=== PATIENT | female | born 1980 | race Caucasian/White ===

== ENCOUNTER 2024-07-15 20:34 | Emergency (ER) | payer BC ==
[2024-07-15] MEDS: Dexamethasone 4 MG/ML SDV IM ONE (20:58)
== END 2024-07-15 21:00 | disposition home or self-care (01) ==
LOC: VM.ED 20:34
DX: H69.83 Other specified disorders of Eustachian tube, bilateral (principal)
CPT/HCPCS: 96372; 99283; J1100

== ENCOUNTER 2024-07-29 18:34 | Emergency (ER) | payer BC ==
[2024-07-29 18:45] LABS: APPEARANCE,URINE TURBID (CLEAR); BILIRUBIN,URINE NEGATIVE (NEGATIVE); COLOR,URINE RED (YELLOW); GLUCOSE,URINE NEGATIVE (NEGATIVE); KETONES,URINE NEGATIVE (NEGATIVE); LEUKOCYTE ESTERASE,URINE MODERATE (NEGATIVE); NITRITE,URINE NEGATIVE (NEGATIVE); OCCULT BLOOD,URINE LARGE (NEGATIVE); PH,URINE 5.5 (5.0-8.0); PROTEIN,URINE 100 mg/dL (NEGATIVE); UROBILINOGEN,URINE 0.2 EU/dL (0.2)
[2024-07-29 18:52] LABS: BACTERIA,URINE FEW /HPF (NOT SEEN); MUCUS,URINE OCCASIONAL /LPF (NOT SEEN); RBC,URINE >100 /HPF (NOT SEEN); SQUAMOUS EPITHELIAL CELLS,UR FEW /HPF (NOT SEEN); WBC,URINE >100 /HPF (NOT SEEN)
[2024-07-29] MEDS: Cephalexin 500 MG Cap PO ONE (19:24)
== END 2024-07-29 19:30 | disposition home or self-care (01) ==
LOC: VM.ED 18:34
DX: N39.0 Urinary tract infection, site not specified (principal)
CPT/HCPCS: 81001; 81025; 99284; A9270-GY

== ENCOUNTER 2024-10-15 18:41 | Emergency (ER) | payer BC ==
[2024-10-15] MEDS ORDERED: Sodium Chloride 0.9% 10 ML Syringe FLUSH PRN (19:22)
[2024-10-15 19:36] LABS: BASOPHILS PERCENT AUTO 0.1 % (0.2-1.2); EOSINOPHILS PERCENT AUTO 0.6 % (0.0-4.0); HEMATOCRIT 40.2 % (33.0-47.0); HEMOGLOBIN 14.1 g/dL (12.0-16.0); IMMATURE GRAN ABSOLUTE AUTO 0.04 x10^3/uL (0.00-0.07); LYMPHOCYTES ABSOLUTE AUTO 1.8 x10^3/uL (1.0-4.8); MEAN CORPUSCULAR HEMOGLOBIN 32.3 pg (26.0-32.0); MEAN CORPUSCULAR HGB CONC 35.1 g/dL (32.0-36.0); MEAN CORPUSCULAR VOLUME 92.2 fL (78.0-93.0); MONOCYTES ABSOLUTE AUTO 0.5 x10^3/uL (0.0-0.8); MONOCYTES PERCENT AUTO 7.2 % (2.0-11.0); NEUTROPHILS ABSOLUTE AUTO 4.8 x10^3/uL (1.8-7.7); NEUTROPHILS PERCENT AUTO 66.5 % (50.0-80.0); PLATELET COUNT,PLT 285 x10^3/uL (130-400); RED BLOOD CELL COUNT 4.36 x10^6/uL (4.00-5.50); WHITE BLOOD CELL COUNT,WBC 7.2 x10^3/uL (4.0-10.0)
[2024-10-15 19:37] LABS: APPEARANCE,URINE CLEAR (CLEAR); BILIRUBIN,URINE NEGATIVE (NEGATIVE); COLOR,URINE YELLOW (YELLOW); GLUCOSE,URINE NEGATIVE (NEGATIVE); KETONES,URINE NEGATIVE (NEGATIVE); LEUKOCYTE ESTERASE,URINE NEGATIVE (NEGATIVE); NITRITE,URINE NEGATIVE (NEGATIVE); OCCULT BLOOD,URINE NEGATIVE (NEGATIVE); PH,URINE 5.5 (5.0-8.0); PROTEIN,URINE NEGATIVE (NEGATIVE); UROBILINOGEN,URINE 0.2 EU/dL (0.2)
[2024-10-15] MEDS: HYDROmorphone 0.5 MG/0.5 ML Syringe IVPUSH ONE (19:47)
[2024-10-15 19:48] LABS: PROTHROMBIN TIME 9.9 SEC (8.9-11.5); PTT,PARTIAL THROMBOPLSTIN TIME 28.1 SEC (21.9-33.8)
[2024-10-15 19:50] LABS: A/G RATIO 1.15; ALANINE AMINOTRANSFERASE,ALT 33 U/L (14-59); ALBUMIN 3.8 g/dL (3.4-5.0); ALKALINE PHOSPHATASE 79 U/L (46-116); ASPARTATE AMNIOTRANSFERASE,AST 20 U/L (15-37); BILIRUBIN TOTAL 0.3 mg/dL (0.2-1.0); BLOOD UREA NITROGEN,BUN 15 mg/dL (7-18); CALCIUM 9.9 mg/dL (8.5-10.1); CARBON DIOXIDE,CO2 28 mmol/L (21-32); CHLORIDE,CL 102 mmol/L (98-107); CREATININE 0.7 mg/dL (0.55-1.02); EST CRCL DRUG DOSING (CG) 95.13 mL/min; GLUCOSE RANDOM 93 mg/dL (70-99); POTASSIUM,K 3.9 mmol/L (3.5-5.1); PROTEIN TOTAL,TP 7.1 g/dL (6.4-8.2); SODIUM,NA 139 mmol/L (136-145)
[2024-10-15 19:51] LABS: ANION GAP 12.9 mmol/L (5-15); C-REACTIVE PROTEIN < 0.50 mg/dL (<=0.50); ESTIMATED GFR 110 mL/min (>=60)
[2024-10-15 19:53] LABS: LACTIC ACID 0.7 mmol/L (0.4-2.0)
[2024-10-15] MEDS: Take Home: Acetaminophen/HYDROcodone 325-5 MG, 5 Tab Pack PO ONE (20:09)
== END 2024-10-15 20:17 | disposition home or self-care (01) ==
LOC: VM.ED 18:41 → SUPCPDRO 18:41 → VM.ED 20:17
DX: S30.1XXA Contusion of abdominal wall, initial encounter (principal); G89.18 Other acute postprocedural pain; Z90.49 Acquired absence of other specified parts of digestive tract; Z79.899 Other long term (current) drug therapy; Z88.1 Allergy status to other antibiotic agents; Z88.6 Allergy status to analgesic agent; Z88.8 Allergy status to other drugs, medicaments and biological substances; X58.XXXA Exposure to other specified factors, initial encounter
CPT/HCPCS: 36415; 80053; 81003; 83605; 85025; 85610; 85730; 86140; 96374; 99284; 99284-25; A9270-GY; J1171

== ENCOUNTER 2024-11-01 17:39 | Emergency (ER) | payer BC ==
[2024-11-01 18:30] LABS: BASOPHILS PERCENT AUTO 0.5 % (0.2-1.2); EOSINOPHILS ABSOLUTE AUTO 0.1 x10^3/uL (0.0-0.5); EOSINOPHILS PERCENT AUTO 0.7 % (0.0-4.0); HEMATOCRIT 39.9 % (33.0-47.0); IMMATURE GRAN ABSOLUTE AUTO 0.04 x10^3/uL (0.00-0.07); LYMPHOCYTES ABSOLUTE AUTO 1.9 x10^3/uL (1.0-4.8); LYMPHOCYTES PERCENT AUTO 24.3 % (25.0-50.0); MEAN CORPUSCULAR HEMOGLOBIN 31.8 pg (26.0-32.0); MEAN CORPUSCULAR HGB CONC 35.1 g/dL (32.0-36.0); MEAN CORPUSCULAR VOLUME 90.7 fL (78.0-93.0); MONOCYTES ABSOLUTE AUTO 0.5 x10^3/uL (0.0-0.8); MONOCYTES PERCENT AUTO 6.6 % (2.0-11.0); NEUTROPHILS ABSOLUTE AUTO 5.1 x10^3/uL (1.8-7.7); NEUTROPHILS PERCENT AUTO 67.4 % (50.0-80.0); PLATELET COUNT,PLT 269 x10^3/uL (130-400); WHITE BLOOD CELL COUNT,WBC 7.6 x10^3/uL (4.0-10.0)
[2024-11-01 18:41] LABS: BLOOD UREA NITROGEN,BUN 19 mg/dL (7-18); CALCIUM 9.4 mg/dL (8.5-10.1); CARBON DIOXIDE,CO2 29 mmol/L (21-32); CHLORIDE,CL 102 mmol/L (98-107); CREATININE 0.8 mg/dL (0.55-1.02); GLUCOSE RANDOM 84 mg/dL (70-99); POTASSIUM,K 3.8 mmol/L (3.5-5.1); SODIUM,NA 139 mmol/L (136-145)
[2024-11-01 18:42] LABS: ANION GAP 11.8 mmol/L (5-15); ESTIMATED GFR 94 mL/min (>=60)
[2024-11-01 19:08] LABS: APPEARANCE,URINE CLEAR (CLEAR); BILIRUBIN,URINE NEGATIVE (NEGATIVE); COLOR,URINE LIGHT YELLOW (YELLOW); GLUCOSE,URINE NEGATIVE (NEGATIVE); KETONES,URINE NEGATIVE (NEGATIVE); LEUKOCYTE ESTERASE,URINE NEGATIVE (NEGATIVE); NITRITE,URINE NEGATIVE (NEGATIVE); OCCULT BLOOD,URINE NEGATIVE (NEGATIVE); PROTEIN,URINE NEGATIVE (NEGATIVE); UROBILINOGEN,URINE 0.2 EU/dL (0.2)
[2024-11-01] MEDS: LORazepam 2 MG/ML SDV IVPUSH ONE (19:40)
[2024-11-01] MEDS: Iopamidol 612 MG/ML 100 ML Bottle IVPUSH ONE (20:01)
[2024-11-01] MEDS ORDERED: Ketorolac 30 MG/ML SDV IVPUSH ONE (21:37)
[2024-11-01] MEDS: Morphine 2 MG/ML SYRINGE IVPUSH ONE (21:55)
== END 2024-11-01 22:10 | disposition home or self-care (01) ==
LOC: VM.ED 17:39
DX: R10.84 Generalized abdominal pain (principal); Z79.899 Other long term (current) drug therapy; Z88.6 Allergy status to analgesic agent; Z88.1 Allergy status to other antibiotic agents; Z88.8 Allergy status to other drugs, medicaments and biological substances
CPT/HCPCS: 74177; 80048; 81003; 85025; 96374; 96375; 99284; 99284-25; J2060; J2270; Q9967

== ENCOUNTER 2025-03-14 11:32 | Day surgery (SDC) | payer BC ==
[~2025-03-14 11:32] MED LIST: Lactated Ringers 1,000 ML IV SCH
[2025-03-14] MEDS: Lactated Ringers 1,000 ML IV SCH (12:12)
[2025-03-14] MEDS ORDERED: Ketorolac 30 MG/ML SDV IVPUSH ONE (12:44)
[2025-03-14] MEDS ORDERED: Propofol 200 MG/20 ML SDV ONE ×3 (12:44→13:45)
[2025-03-14] MEDS ORDERED: fentaNYL 100 MCG/2 ML SDV ONE (13:15)
[2025-03-14] MEDS ORDERED: Midazolam 1 MG/ML 2 ML SDV ONE (13:15)
[2025-04-26] MEDS ORDERED: Lactated Ringers 1,000 ML IV SCH (07:00)
== END 2025-03-14 14:39 | disposition home or self-care (01) ==
LOC: VM.SDS 11:32
PROVIDERS: ATTEND Family Medicine
DX: D12.6 Benign neoplasm of colon, unspecified (principal); K63.5 Polyp of colon; K57.30 Diverticulosis of large intestine without perforation or abscess without bleeding; Z86.0100 Personal history of colon polyps, unspecified; Z80.0 Family history of malignant neoplasm of digestive organs; F41.9 Anxiety disorder, unspecified; F32.A Depression, unspecified; Z87.891 Personal history of nicotine dependence
CPT/HCPCS: 00813; 43239; 45380; J2250; J2704; J3010; J7120

== ENCOUNTER 2025-05-26 14:00 | Emergency (ER) | payer BC, OTHER | END 2025-05-26 14:45 | disposition home or self-care (01) | LOC: VM.ED 14:00 | DX: S61.012A Laceration without foreign body of left thumb without damage to nail, initial encounter (principal); Z79.899 Other long term (current) drug therapy; Z88.8 Allergy status to other drugs, medicaments and biological substances; Z88.1 Allergy status to other antibiotic agents; W26.0XXA Contact with knife, initial encounter | CPT/HCPCS: 12001; 99282; 99283; J2003 ==

== ENCOUNTER 2025-06-26 14:59 | Emergency (ER) | payer BC ==
[2025-06-26 15:32] LABS: BASOPHILS ABSOLUTE AUTO 0.0 x10^3/uL (0.0-0.2); BASOPHILS PERCENT AUTO 0.1 % (0.2-1.2); EOSINOPHILS ABSOLUTE AUTO 0.1 x10^3/uL (0.0-0.5); EOSINOPHILS PERCENT AUTO 1.6 % (0.0-4.0); IMMATURE GRAN ABSOLUTE AUTO 0.10 x10^3/uL (0.00-0.07); IMMATURE GRAN PERCENT AUTO 1.40 % (0.00-0.43); LYMPHOCYTES ABSOLUTE AUTO 2.0 x10^3/uL (1.0-4.8); LYMPHOCYTES PERCENT AUTO 27.2 % (25.0-50.0); MONOCYTES ABSOLUTE AUTO 0.5 x10^3/uL (0.0-0.8); MONOCYTES PERCENT AUTO 7.2 % (2.0-11.0); NEUTROPHILS ABSOLUTE AUTO 4.6 x10^3/uL (1.8-7.7); NEUTROPHILS PERCENT AUTO 62.5 % (50.0-80.0); PLATELET COUNT,PLT 241 x10^3/uL (130-400); RED BLOOD CELL COUNT 4.19 x10^6/uL (4.00-5.50); WHITE BLOOD CELL COUNT,WBC 7.4 x10^3/uL (4.0-10.0)
[2025-06-26] MEDS: Ondansetron 4 MG/2 ML SDV IVPUSH ONE (15:42)
[2025-06-26 15:53] LABS: A/G RATIO 1.41; ALANINE AMINOTRANSFERASE,ALT 22 U/L (14-59); ASPARTATE AMNIOTRANSFERASE,AST 14 U/L (15-37); BILIRUBIN TOTAL 0.2 mg/dL (0.2-1.0); BLOOD UREA NITROGEN,BUN 11 mg/dL (7-18); CARBON DIOXIDE,CO2 29 mmol/L (21-32); CHLORIDE,CL 101 mmol/L (98-107); CREATININE 0.8 mg/dL (0.55-1.02); GLUCOSE RANDOM 95 mg/dL (70-99); POTASSIUM,K 4.2 mmol/L (3.5-5.1); PROTEIN TOTAL,TP 6.5 g/dL (6.4-8.2); SODIUM,NA 139 mmol/L (136-145)
[2025-06-26 15:54] LABS: ESTIMATED GFR 93 mL/min (>=60)
[2025-06-26] MEDS: Iopamidol 612 MG/ML 100 ML Bottle IVPUSH ONE (16:45)
[2025-06-26 17:31] LABS: APPEARANCE,URINE CLEAR (CLEAR); GLUCOSE,URINE NEGATIVE (NEGATIVE); OCCULT BLOOD,URINE NEGATIVE (NEGATIVE)
[2025-06-26] MEDS: Acetaminophen/HYDROcodone 325-5 MG Tab PO ONE (18:04)
== END 2025-06-26 18:11 | disposition home or self-care (01) ==
LOC: VM.ED 14:59
DX: R10.84 Generalized abdominal pain (principal); Z88.1 Allergy status to other antibiotic agents; Z88.8 Allergy status to other drugs, medicaments and biological substances; Z79.899 Other long term (current) drug therapy
CPT/HCPCS: 74177; 80053; 81003; 83690; 85025; 96374; 96375; 99284; A9270; J1171; J2405; Q9967

== ENCOUNTER 2025-09-10 00:24 | Emergency (ER) | payer BC ==
[2025-09-10 00:56] LABS: BASOPHILS ABSOLUTE AUTO 0.0 x10^3/uL (0.0-0.2); BASOPHILS PERCENT AUTO 0.3 % (0.2-1.2); EOSINOPHILS ABSOLUTE AUTO 0.1 x10^3/uL (0.0-0.5); EOSINOPHILS PERCENT AUTO 1.5 % (0.0-4.0); IMMATURE GRAN ABSOLUTE AUTO 0.05 x10^3/uL (0.00-0.07); IMMATURE GRAN PERCENT AUTO 0.60 % (0.00-0.43); LYMPHOCYTES ABSOLUTE AUTO 2.3 x10^3/uL (1.0-4.8); LYMPHOCYTES PERCENT AUTO 29.3 % (25.0-50.0); MONOCYTES ABSOLUTE AUTO 0.8 x10^3/uL (0.0-0.8); MONOCYTES PERCENT AUTO 9.9 % (2.0-11.0); NEUTROPHILS ABSOLUTE AUTO 4.6 x10^3/uL (1.8-7.7); NEUTROPHILS PERCENT AUTO 58.4 % (50.0-80.0); PLATELET COUNT,PLT 225 x10^3/uL (130-400); RED BLOOD CELL COUNT 3.95 x10^6/uL (4.00-5.50); WHITE BLOOD CELL COUNT,WBC 7.9 x10^3/uL (4.0-10.0)
[2025-09-10] MEDS: Ondansetron 4 MG Tab.DIS PO ONE (01:09)
[2025-09-10 01:22] LABS: A/G RATIO 1.24; ALANINE AMINOTRANSFERASE,ALT 35 U/L (14-59); ASPARTATE AMNIOTRANSFERASE,AST 14 U/L (15-37); BILIRUBIN TOTAL 0.2 mg/dL (0.2-1.0); BLOOD UREA NITROGEN,BUN 8 mg/dL (7-18); CARBON DIOXIDE,CO2 25 mmol/L (21-32); CHLORIDE,CL 102 mmol/L (98-107); CREATININE 0.7 mg/dL (0.55-1.02); EST CRCL DRUG DOSING (CG) 92.29 mL/min; ESTIMATED GFR 109 mL/min (>=60); GLUCOSE RANDOM 108 mg/dL (70-99); POTASSIUM,K 3.9 mmol/L (3.5-5.1); PROTEIN TOTAL,TP 6.5 g/dL (6.4-8.2); SODIUM,NA 138 mmol/L (136-145)
== END 2025-09-10 01:40 | disposition home or self-care (01) ==
LOC: VM.ED 00:24
DX: R07.89 Other chest pain (principal); Z88.1 Allergy status to other antibiotic agents; Z88.8 Allergy status to other drugs, medicaments and biological substances
CPT/HCPCS: 36415; 71045; 80053; 83690; 84484; 85025; 93005; 93010; 99284; 99285; A9270-GY

== ENCOUNTER 2025-09-12 17:47 | Emergency (ER) | payer BC ==
[2025-09-12] MEDS: Lidocaine 1% with EPINEPHrine 1:100,000 20 ML MDV INFILT STA (18:20)
== END 2025-09-12 18:41 | disposition home or self-care (01) ==
LOC: VM.ED 17:47
DX: S81.811A Laceration without foreign body, right lower leg, initial encounter (principal); Z88.1 Allergy status to other antibiotic agents; Z88.5 Allergy status to narcotic agent; Z88.8 Allergy status to other drugs, medicaments and biological substances; Z79.899 Other long term (current) drug therapy; W26.8XXA Contact with other sharp object(s), not elsewhere classified, initial encounter
CPT/HCPCS: 12001; 99282; J2004

== ENCOUNTER 2025-10-08 19:37 | Emergency (ER) | payer BC | END 2025-10-08 20:46 | disposition home or self-care (01) | LOC: VM.ED 19:37 | DX: G89.18 Other acute postprocedural pain (principal); M79.644 Pain in right finger(s); Z88.1 Allergy status to other antibiotic agents; Z88.8 Allergy status to other drugs, medicaments and biological substances; Z88.6 Allergy status to analgesic agent | CPT/HCPCS: 96372; 99283; J1171 ==

== ENCOUNTER 2025-10-16 21:42 | Emergency (ER) | payer BC ==
[2025-10-16] MEDS: Acetaminophen/HYDROcodone 325-10 MG Tab PO ONE (22:36)
== END 2025-10-16 22:40 | disposition home or self-care (01) ==
LOC: VM.ED 21:42
DX: G89.18 Other acute postprocedural pain (principal); M79.641 Pain in right hand; Z88.1 Allergy status to other antibiotic agents; Z88.0 Allergy status to penicillin; Z88.5 Allergy status to narcotic agent; Z79.899 Other long term (current) drug therapy
CPT/HCPCS: 99283; A9270-GY